=== PATIENT | male | born 1945 | race Caucasian/White ===

== ENCOUNTER 2023-06-11 07:45 | Day surgery (SDC) | payer OTHER ==
[~2023-06-11] VITALS: Ht 165.1 cm; Wt 63.5 kg
[2023-06-11] MEDS ORDERED: MEPERIDINE 100 MG INJ. 100 MG/ML VIAL ONE (08:07)
[2023-06-11] MEDS ORDERED: MIDAZOLAM HCL 5 MG/5 ML VIAL ONE (08:07)
[2023-06-11 12:01] VITALS: O2SAT 98
[2023-06-11 16:28] VITALS: BP_SYST 144; PULSE 61; RESP 16; TEMP 97.7
== END 2023-06-11 11:30 | disposition home or self-care (01) ==
LOC: SDS 07:45 → SMU 07:56 → SDS 11:30
PROVIDERS: ATTEND Internal Medicine Gastroenterology
DX: D64.9 Anemia, unspecified (principal); K29.50 Unspecified chronic gastritis without bleeding; R74.8 Abnormal levels of other serum enzymes; K44.9 Diaphragmatic hernia without obstruction or gangrene; K31.84 Gastroparesis; J43.9 Emphysema, unspecified; E78.5 Hyperlipidemia, unspecified; M19.90 Unspecified osteoarthritis, unspecified site; K21.9 Gastro-esophageal reflux disease without esophagitis; I10 Essential (primary) hypertension; Z90.89 Acquired absence of other organs; Z79.899 Other long term (current) drug therapy
CPT/HCPCS: 43239; 99152; 87081; 36415; 88305; 88312; 88313; G0378; J2250; J2175